=== PATIENT | female | born 1945 | race Caucasian/White ===

== ENCOUNTER → 2022-02-14 | Outpatient (CLI) | payer MEDICARE, OTHER ==
[~2022-02-14] VITALS: Ht 152.4 cm; Wt 81.0 kg
[~2022-02-14] MED LIST: APIX2.5T PO; ASPI81TA40 PO; CALC-1124 PO; CHOL500013 PO; EMPA1TAB19 PO; FISH1CAP27 PO; FURO40 PO; LOSA1TAB40 PO; METF-1211 PO; METO-558 PO; PIOG45TA4 PO; SIMV-260 PO; SITA100 PO; TELMISARTAN PO
[2022-02-14 12:14] VITALS: BP 115/65
== END | disposition home or self-care (01) ==
LOC: SRCNTR 11:09
PROVIDERS: ATTEND Internal Medicine Pulmonary Disease
DX: G47.33 Obstructive sleep apnea (adult) (pediatric) (principal); E11.9 Type 2 diabetes mellitus without complications; E66.9 Obesity, unspecified; I48.91 Unspecified atrial fibrillation
CPT/HCPCS: G0463; Z7500